=== PATIENT | male | born 1950 | race Caucasian/White ===

== ENCOUNTER 2017-09-29 11:17 | Day surgery (SDC) | payer OTHER ==
[2017-09-24 09:59] VITALS: BMI 33.0
--- NOTE | 2017-09-28 13:41 | HP ---
HISTORY AND PHYSICAL CHIEF COMPLAINT: Right shoulder pain. HISTORY OF PRESENT ILLNESS: The patient is a 67-year-old, right-hand dominant, self-employed male who presents with progressive right shoulder pain for the past 2 years. He notes lateral and anterior pain with overhead activity. He is having significant night symptoms. He has had previous injections with partial temporary relief. PAST MEDICAL HISTORY: Significant for COPD and hypertension. PAST SURGICAL HISTORY: Negative. CURRENT MEDICATIONS: Lisinopril. ALLERGIES: He denies drug allergies. FAMILY HISTORY: Negative. SOCIAL HISTORY: Significant for previous tobacco use in addition to daily alcohol use. REVIEW OF SYSTEMS: Sixteen point review of systems otherwise reviewed and is noncontributory. PHYSICAL EXAMINATION: On examination, the patient is approximately 6 foot 1, 250 pounds, of endomorphic habitus. HEENT exam is nonfocal. Neck is supple. On examination of his right shoulder, he is tender about the anterior subacromial space and the bicipital groove. He has moderate subacromial crepitus. Active range of motion, forward elevation 150 degrees, external rotation with arm at side 60 degrees, internal rotation to T12. Motor strength is 5/5 for abduction, 5/5 for external rotation with arm at side. Impingement test and Speed tests are positive. His distal neurovascular exam otherwise appears intact in the right upper extremity. X-rays to include AP and scapular outlet views of the right shoulder obtained in the office show a type 2 acromion with diminished humeral head to acromial distance. MRI report from 04/22/2017 of the right shoulder shows a high-grade partial-thickness rotator cuff tear. IMPRESSION: 1. Right shoulder impingement with symptomatic rotator cuff tear. 2. Right shoulder bicipital tendinosis. RECOMMENDATIONS: I talked to the patient at length regarding his treatment options. At this point he is quite symptomatic and limited despite adequate conservative measures. After thorough discussion, he opts to proceed with surgery. We will plan to proceed with arthroscopic evaluation with probable subacromial decompression, possible rotator cuff repair, and possible biceps tenotomy. Risks and benefits were discussed at length in layman's terms. MMODL / IJN: [id number] /
[~2017-09-29 11:17] MED LIST: DEXAMETHASONE SOD PHOSPHATE 10 MG/ML 1 ML VIAL IV ONE; HYDROmorphone 0.5 MG/0.5 ML SYRINGE IVP PRN; LACTATED RINGERS 1,000 ML IV SCH; MIDAZOLAM 2 MG/2 ML VIAL IV PRN; ONDANSETRON 4 MG/2 ML VIAL IVP ONE; ceFAZolin IN SWFI 2 GM/20 ML SYRINGE IVP ONE
[2017-09-29 11:45] VITALS: RESP 16
[2017-09-29] MEDS ORDERED: LIDOCAINE 1% 20 ML VIAL (10MG/ML) FOR IV START INTRADERMA ONE (11:51)
[2017-09-29] MEDS ORDERED: PROPOFOL 10 MG/ML 20 ML VIAL IV ONE (12:59)
[2017-09-29] MEDS ORDERED: LIDOCAINE 1% INJ 10MG/ML (20 ML MDV) ONE (12:59)
[2017-09-29] MEDS ORDERED: fentaNYL (PF) 50 MCG/ML 2 ML AMP ONE (12:59)
[2017-09-29] MEDS ORDERED: PHENYLEPHRINE-0.9% NACL SYG 1 MG/10 ML SYRINGE ONE (12:59)
[2017-09-29] MEDS ORDERED: ROPIVACAINE 5 MG/ML 30 ML VIAL ONE (12:59)
[2017-09-29] MEDS ORDERED: ePHEDrine SULFATE/0.9% NACL/PF 50 MG/5 ML SYRINGE IV ONE (12:59)
[2017-09-29] MEDS ORDERED: LIDOCAINE 2%-EPI 1:100,000 20 ML VIAL ONE (12:59)
[2017-09-29] MEDS ORDERED: SUCCINYLCHOLINE CHLORIDE 100 MG/5 ML SYR IV ONE (12:59)
[2017-09-29] MEDS ORDERED: MIDAZOLAM 2 MG/2 ML VIAL ONE (12:59)
[2017-09-29] MEDS ORDERED: EPINEPHrine (PF) 1 ML in SODIUM CHLORIDE 0.9% IRRIGATIO 3,000 ML IRRIGATION ONE ×8 (13:00)
[2017-09-29] MEDS ORDERED: DEXTROSE 50%-WATER 50 ML SYRINGE IVP ONE (13:02)
--- NOTE | 2017-09-29 13:51 | P.ONQ ---
Anesthesiology Proc Note - PNB - Peripheral Nerve Block Performed Right Interscalene Single Time Out Performed: Yes Procedure Start Time: 12:11 Procedure Stop Time: 12:18 Indication: Acute Post-Operative Pain, Requested by physician Sedation Type: Sedate with meaningful contact maintained Preparation: Sterile Prep Position: Supine Needle Gauge: 21 Technique: Ultrasound Injectate: 0.5% Ropivacaine (see comment for volume) (ropi .5% 30cc) Blood Aspirated: No Pain Paresthesia on Injection Noted: No Resistance on Injection: Normal Events: Uneventful and Well Tolerated
--- NOTE | 2017-09-29 14:50 | P.OP ---
Date of Procedure: 09/29/17 Preoperative Diagnosis: Right shoulder symptomatic rotator cuff tear Postoperative Diagnosis: Right 3 cm rotator cuff tear/high-grade partial-thickness tear long head of biceps/anterior labral tear/impingement Procedure(s) Performed: Right shoulder arthroscopic subacromial decompression/biceps tenotomy/rotator cuff repair/anterior labral debridement Implants: 4.75 mm swivel lock anchor 2, 5.5 mm swivel lock anchor 2 Anesthesia: CLOTILDE, regional Surgeon: Eric Telles [place] Winder #1: Pepe Chen Estimated Blood Loss (ml): 10 Pathology: none sent Condition: stable Disposition: PACU Indications for Procedure: The patient is a 67-year-old male who presents with progressive right shoulder pain despite conservative measures. After thorough discussions options to include continued conservative measures versus operative intervention he opted to proceed with surgery. Operative risks to include infection, neurovascular injury, development of blood clots, possible tendon rerupture, possible postoperative stiffness, and possible need for subsequent procedures was discussed. Informed consent was obtained. Operative Findings: As below Description of Procedure: The patient was brought to the operating room, and after induction of general anesthesia was placed in a beachchair position. Bony prominences were appropriately padded. The right upper extremity was prepped and draped in normal fashion. I did examined the right shoulder. There was no gross block to passive motion. There was no gross glenohumeral instability. The bony outlines the acromion, distal clavicle, and coracoid process were outlined with a skin marker. The glenohumeral joint was inflated 50 mL of saline utilizing a spinal needle from posterior approach. A posterior portal was made through a 5 mm skin incision 1 cm medial and inferior to the posterior lateral border of the acromion. A blunt trocar was used to easily into the joint. Diagnostic arthroscopy was performed. An anterior portals made entering the joint above the scapularis just lateral to the coracoid process through a 5 mm skin incision. The subscapularis appeared to be intact. There is tear the anterior labrum that was impinging and was debrided back to stable base with a motorized shaver. A portion inferior labrum was also debrided. On inspection the biceps , high-grade partial-thickness tear of the intrathecal portion the biceps was noted. It was elected to proceed with tenotomy at this point. This was released from the superior labrum with electrocautery and allowed to retract to the bicipital groove. On inspection the rotator cuff, a full-thickness tear involving the supraspinatus and a portion the infraspinatus was noted. This measured approximately 3 cm. There is mild retraction. The posterior portion the cuff appeared to be intact. The arthroscope was then placed into the subacromial space. A lateral portal was made through a 5 mm skin incision 2 cm' s inferior to the anterolateral border of the acromion. The soft tissue on the undersurface the acromion was debrided with a motorized shaver and with electrocautery clearly defining the anterior medial and lateral borders. An anterior inferior acromial physis performed with a motorized mihaela starting anterolateral, then extending this posteriorly, then extending this medially. I was able to convert to a flat acromion. This was verified from the posterior and lateral viewing portals. On inspection rotator cuff this was easily mobilized back to the greater tuberosity. An accessory superior lateral portals made through a 4 mm skin incision just off the lateral edge of the acromion. The greater tuberosity was lightly decorticated with a shaver down to bleeding bony surface. 2 anchors were then placed just off the articular surface with the appropriate starting awl. 4.75 mm anchors were placed with good purchase. #2 fiber tape was preloaded and then passed through the rotator cuff with a scorpion suture passer. These were then crisscrossed and a lateral row was created utilizing 5.5 mm swivel lock anchors. The cuff was appropriately tensioned. Good purchase was obtained. Final arthroscopic view showed adequate compression at the [place] footprint. The portals were closed with simple 3-0 nylon suture. A sterile dressing was applied in addition to a brace. The patient was then awoken from general anesthesia and transferred to recovery room in good condition. Blood loss was estimated at 10 mL. No complications were incurred. Sponge and needle counts were correct at the end of the case.
[2017-09-29 14:54] VITALS: TEMP 97.8
[2017-09-29 16:01] VITALS: BP 164/72; PULSE 88
== END 2017-09-29 17:00 | disposition home or self-care (01) ==
LOC: OR 11:17
PROVIDERS: ATTEND Orthopaedic Surgery
DX: M75.101 Unspecified rotator cuff tear or rupture of right shoulder, not specified as traumatic (principal); S46.111A Strain of muscle, fascia and tendon of long head of biceps, right arm, initial encounter; S43.401A Unspecified sprain of right shoulder joint, initial encounter; X58.XXXA Exposure to other specified factors, initial encounter; M75.41 Impingement syndrome of right shoulder; I10 Essential (primary) hypertension; E78.5 Hyperlipidemia, unspecified; J44.9 Chronic obstructive pulmonary disease, unspecified; I25.10 Atherosclerotic heart disease of native coronary artery without angina pectoris; G47.33 Obstructive sleep apnea (adult) (pediatric); Z99.89 Dependence on other enabling machines and devices; Z79.899 Other long term (current) drug therapy; Z88.8 Allergy status to other drugs, medicaments and biological substances; Z87.891 Personal history of nicotine dependence
CPT/HCPCS: 64415; 29826; 29827; C1713 ×4; J2250; J1100; J2405; J0171; J2001; J3010; J2795; J2370; J0330; J2704; J0690

== ENCOUNTER 2019-09-22 21:25 | Emergency (ER) | payer OTHER ==
[2019-09-22 21:35] VITALS: TEMP 97.8
--- NOTE | 2019-09-22 22:24 | ED ---
Recheck HPI - General Chief Complaint: Recheck/Abnormal Lab/Rx Stated Complaint: High BP Time Seen by Provider: 09/22/19 22:19 Source: patient Mode of arrival: ambulatory Limitations: no limitations - History of Present Illness Initial Comments: Paxton is a 69-year-old male who presents the emergency department today for evaluation of hypertension. 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 Patient states that the pain persisted throughout the day, he did see a chiropractor with no improvement in the discomfort. Patient states that this evening he continued to feel uncomfortable just didn't feel right he checked his blood pressure noted that it was elevated at greater than 200 systolic at which time he took a repeat dose of his lisinopril. Patient reports he checked his blood pressure 2 hours later and reported that it was over 190 systolic at which time he decided to come the ER for evaluation. Patient denies any headache, vision changes, chest pain, palpitations, shortness of breath. He reports other than feeling tightness in his upper back and shoulders he feels well. He currently follows with the [place] [facility] as well as Dr. Morse for cardiology. He is scheduled to see cardiology on of next week. - Related Data Home Medications Medication Instructions Recorded Confirmed Lisinopril [Zestril] 20 mg PO QAM 09/24/17 09/24/17 Previous Rx's Medication Instructions Recorded HYDROcodone/APAP 7.5-325MG [[facility] 1 each PO Q6HR PRN #30 tab 09/29/17 7.5] Allergies Allergy/AdvReac Type Severity Reaction Status Date / Time atenolol AdvReac fatigue Verified 09/22/19 21:32 Review of Systems ROS Statement: Those systems with pertinent positive or pertinent negative responses have been documented in the HPI. ROS Other: All systems not noted in ROS Statement are negative. Past Medical History Past Medical History: Hyperlipidemia, Hypertension, Sleep Apnea/CPAP/BIPAP History of Any Multi-Drug Resistant Organisms: None Reported Past Surgical History: Hernia Repair, Orthopedic Surgery, Tonsillectomy Additional Past Surgical History / Comment(s): umb. and ingiunal hernia, rt cataract, knee arthroscopy Past Anesthesia/Blood Transfusion Reactions: No Reported Reaction Past Psychological History: No Psychological Hx Reported Smoking Status: Former smoker Past Alcohol Use History: Daily, Heavy Past Drug Use History: None Reported - Past Family History Father Family Medical History: Cancer Sister(s) Family Medical History: Cancer General Exam - General Exam Comments Initial Comments: Physical Exam GENERAL: Patient is well-developed and well-nourished. Patient is nontoxic and well- hydrated and is in no distress. HENT: Normocephalic, Atraumatic. EYES: PERRL, EOMI PULMONARY: Unlabored respirations. No audible rales rhonchi or wheezing was noted. CARDIOVASCULAR: There is a regular rate and rhythm without any murmurs gallops or rubs. ABDOMEN: Soft and nontender with normal bowel sounds. SKIN: Skin is clear with no lesions or rashes and otherwise unremarkable. : Deferred NEUROLOGIC: Patient is alert and oriented x3. Moving all extremities spontaneously MUSCULOSKELETAL: Normal extremities with adequate strength and full range of motion. No lower extremity swelling or edema. No calf tenderness. PSYCHIATRIC: Normal psychiatric evaluation. Limitations: no limitations Course Vital Signs 09/22/19 09/22/19 09/22/19 21:31 22:23 23:54 Temperature 97.8 F Pulse Rate 77 73 73 Respiratory 16 18 16 Rate Blood Pressure 194/96 156/84 145/78 O2 Sat by Pulse 99 96 97 Oximetry Medical Decision Making - Medical Decision Making The patient was seen and evaluated, history is obtained from the patient Physical exam is relatively unremarkable excellent patient is noted to be hypertensive on arrival however blood pressures improving systolic is in the 150s at this time and no additional medications are indicated, labs were obtained and results with no significant acute abnormalities, patient continued to rest comfortably and is comfortable plan for discharge home and outpatient follow-up with cardiology as scheduled. 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 - Lab Data Result diagrams: 09/22/19 22:53 09/22/19 22:53 Lab Results 09/22/19 09/22/19 09/22/19 Range/Units 22:53 22:53 22:53 WBC 7.6 (3.8-10.6) k/uL RBC 4.94 (4.30-5.90) m/uL Hgb 16.0 (13.0-17.5) gm/dL Hct 48.4 (39.0-53.0) % MCV 97.9 (80.0-100.0) fL MCH 32.4 (25.0-35.0) pg MCHC 33.1 (31.0-37.0) g/dL RDW 12.4 (11.5-15.5) % Plt Count 184 (150-450) k/uL Neutrophils % 65 % Lymphocytes % 19 % Monocytes % 7 % Eosinophils % 4 % Basophils % 3 % Neutrophils # 5.0 (1.3-7.7) k/uL Lymphocytes # 1.4 (1.0-4.8) k/uL Monocytes # 0.5 (0-1.0) k/uL Eosinophils # 0.3 (0-0.7) k/uL Basophils # 0.3 H (0-0.2) k/uL Sodium 138 (137-145) mmol/L Potassium 5.1 (3.5-5.1) mmol/L Chloride 104 (98-107) mmol/L Carbon Dioxide 23 (22-30) mmol/L Anion Gap 11 mmol/L BUN 25 H (9-20) mg/dL Creatinine 0.76 (0.66-1.25) mg/dL Est GFR (CKD-EPI)AfAm >90 (>60 ml/min/1.73 sqM) Est GFR (CKD-EPI)NonAf >90 (>60 ml/min/1.73 sqM) Glucose 99 (74-99) mg/dL Calcium 9.1 (8.4-10.2) mg/dL Total Bilirubin 1.1 (0.2-1.3) mg/dL AST 42 (17-59) U/L ALT 27 (4-49) U/L Alkaline Phosphatase 35 L (38-126) U/L Troponin I <0.012 (0.000-0.034) ng/mL Total Protein 7.9 (6.3-8.2) g/dL Albumin 4.7 (3.5-5.0) g/dL Disposition Clinical Impression: Hypertension Disposition: HOME SELF-CARE Condition: Stable Instructions (If sedation given, give patient instructions): Chronic Hypertension (DC) Is patient prescribed a controlled substance at d/c from ED?: No Referrals: [facility],Clinic [Primary Care Provider] - 1-2 days
[2019-09-22 22:25] VITALS: PULSE 73
[2019-09-22 23:03] LABS: Basophils # (A) 0.3 k/uL (0-0.2); Basophils % (A) 3 %; Eosinophils # (A) 0.3 k/uL (0-0.7); Eosinophils % (A) 4 %; HCT 48.4 % (39.0-53.0); Lymphocytes # (A) 1.4 k/uL (1.0-4.8); Lymphocytes % (A) 19 %; MCH 32.4 pg (25.0-35.0); MCHC 33.1 g/dL (31.0-37.0); MCV 97.9 fL (80.0-100.0); Mean Platelet Volume 7.9; Monocytes # (A) 0.5 k/uL (0-1.0); Monocytes % (A) 7 %; Neutrophils % (A) 65 %; Platelet Count 184 k/uL (150-450); RBC 4.94 m/uL (4.30-5.90); RDW 12.4 % (11.5-15.5); WBC 7.6 k/uL (3.8-10.6)
--- NOTE | 2019-09-22 23:11 | XR ---
EXAMINATION TYPE: XR chest 2V DATE OF EXAM: 09/22/2019 COMPARISON: NONE HISTORY: Hypertension TECHNIQUE: 2 views FINDINGS: Heart and mediastinum are normal. Lungs are clear. Diaphragm is normal. Bony thorax is inta ct. IMPRESSION: Normal chest.
[2019-09-22 23:23] LABS: African American GFR (CKD) >90 (>60 ml/min/1.73 sqM); Albumin 4.7 g/dL (3.5-5.0); Anion Gap 11 mmol/L; Calcium 9.1 mg/dL (8.4-10.2); Carbon Dioxide 23 mmol/L (22-30); Chloride 104 mmol/L (98-107); Glucose 99 mg/dL (74-99); Non-African American GFR(CKD) >90 (>60 ml/min/1.73 sqM); Sodium 138 mmol/L (137-145); Total Bilirubin 1.1 mg/dL (0.2-1.3); Total Protein 7.9 g/dL (6.3-8.2)
[2019-09-22 23:24] LABS: ALT 27 U/L (4-49); AST 42 U/L (17-59); Alkaline Phosphatase 35 U/L (38-126); Blood Urea Nitrogen 25 mg/dL (9-20); Potassium 5.1 mmol/L (3.5-5.1)
[2019-09-22 23:55] VITALS: BP 145/78; RESP 16
== END 2019-09-23 00:22 | disposition home or self-care (01) ==
LOC: EC 21:25
DX: I10 Essential (primary) hypertension (principal); G47.30 Sleep apnea, unspecified; Z99.89 Dependence on other enabling machines and devices; Z88.8 Allergy status to other drugs, medicaments and biological substances; Z87.891 Personal history of nicotine dependence
CPT/HCPCS: 36415; 71046; 80053; 84484; 85025; 99283

== ENCOUNTER 2020-02-16 18:57 | Inpatient (IN) | payer OTHER, MEDICARE ==
[2020-02-16] MEDS ORDERED: HYDROcodone/APAP 7.5-325MG 1 EACH TAB PO ONE (19:25)
--- NOTE | 2020-02-16 19:25 | ED ---
Fall HPI - General Chief Complaint: Fall Stated Complaint: Fall, SOB Time Seen by Provider: 02/16/20 19:15 Source: patient Mode of arrival: ambulatory - History of Present Illness Initial Comments: This is a 69-year-old male who states he tripped over a piece of wood landed on his chest on concrete. He complains some left-sided chest pain difficulty breathing with pain when he tries to take a deep breath. He also did scuff his left knee and left elbow up he states. He does have a history of a bad need at some point we'll need replacing as well as a left shoulder that he states will have surgery on it in the future. He denies any other injuries such as head neck or back pain no other modifying factors MD Complaint: fall - Related Data Home Medications Medication Instructions Recorded Confirmed Lisinopril [Zestril] 20 mg PO DAILY 09/24/17 02/16/20 Atorvastatin Calcium [Lipitor] 20 mg PO HS 02/16/20 02/16/20 Triamterene-Hctz 37.5-25Mg 1 cap PO DAILY 02/16/20 02/16/20 [Dyazide 37.5-25 Capsule] Vitamin For Swelling Otc(Unknown) 1 tab PO DAILY 02/16/20 02/16/20 Allergies Allergy/AdvReac Type Severity Reaction Status Date / Time atenolol AdvReac fatigue Verified 02/16/20 20:40 Review of Systems ROS Statement: Those systems with pertinent positive or pertinent negative responses have been documented in the HPI. ROS Other: All systems not noted in ROS Statement are negative. Past Medical History Past Medical History: Hyperlipidemia, Hypertension, Sleep Apnea/CPAP/BIPAP History of Any Multi-Drug Resistant Organisms: None Reported Past Surgical History: Hernia Repair, Orthopedic Surgery, Tonsillectomy Additional Past Surgical History / Comment(s): umb. and ingiunal hernia, rt cataract, knee arthroscopy Past Anesthesia/Blood Transfusion Reactions: No Reported Reaction Past Psychological History: No Psychological Hx Reported Smoking Status: Former smoker Past Alcohol Use History: Daily, Heavy Past Drug Use History: None Reported - Past Family History Father Family Medical History: Cancer Sister(s) Family Medical History: Cancer General Exam - General Exam Comments Initial Comments: This is a well-developed well-nourished awake alert oriented times female with a Luis A Coma Scale of 15 Limitations: no limitations General appearance: alert, anxious Head exam: Present: atraumatic, normocephalic, normal inspection Eye exam: Present: normal appearance, PERRL, EOMI. Absent: scleral icterus, conjunctival injection, periorbital swelling ENT exam: Present: normal exam, mucous membranes moist Neck exam: Present: normal inspection. Absent: tenderness, meningismus, lymphadenopathy Respiratory exam: Present: chest wall tenderness, decreased breath sounds, other (Decreased breath sounds with tenderness palpation of left anterior lateral chest wall no step-off or crepitation no bruising seen.). Absent: respiratory distress, wheezes, rales, rhonchi, stridor Cardiovascular Exam: Present: regular rate, normal rhythm, normal heart sounds. Absent: systolic murmur, diastolic murmur, rubs, gallop, clicks GI/Abdominal exam: Present: soft, normal bowel sounds. Absent: distended, tenderness, guarding, rebound, rigid, bruit, pulsatile mass Extremities exam: Present: full ROM, normal capillary refill, other (Abrasion seen to the left elbow and forearm no clavicular tenderness on the left. Also abrasion seen over the anterior left knee). Absent: tenderness, pedal edema, joint swelling, calf tenderness Back exam: Present: normal inspection Neurological exam: Present: alert, oriented X3, CN II-XII intact Psychiatric exam: Present: normal affect, normal mood Skin exam: Present: warm, dry, normal color. Absent: intact, rash Course Vital Signs 02/16/20 18:59 Temperature 98.6 F Pulse Rate 93 Respiratory 20 Rate Blood Pressure 130/73 O2 Sat by Pulse 99 Oximetry Procedures - Chest Tube Insertion Consent Obtained: emergent situation Side of Procedure: left Indication: Pneumothorax Placed on monitor/pulse oximetry: Yes Site Prep: Chloroprep Local Anesthesia: Lidocaine 1% Amount (mLs): 7 Insertion Site: Other Tube Size (Japanese): Other Returns: Air Sutured in Place: No (Adhesive) Attached to Suction: No (Not indicated) Repeat X-ray Results: Lung Inflated Patient Tolerated Procedure: well (I did place a door event the second intercostal space midclavicular line on the left. The area was prepped and draped sterilely 1% Xylocaine plain used for anesthetic a #11 blade was used to neck the scan and the device was placed in the usual fashion. The patient did tolerate this well.) Medical Decision Making - Medical Decision Making I did discuss the findings with the patient's . Patient will be admitted to Dr. Perez with consultation to Dr. Mcgarry - Lab Data Result diagrams: 02/16/20 20:24 02/16/20 20:24 Lab Results 02/16/20 02/16/20 02/16/20 Range/Units 20:24 20:24 20:24 WBC 13.4 H (3.8-10.6) k/uL RBC 3.96 L (4.30-5.90) m/uL Hgb 11.8 L (13.0-17.5) gm/dL Hct 37.0 L (39.0-53.0) % MCV 93.4 (80.0-100.0) fL MCH 29.9 (25.0-35.0) pg MCHC 32.0 (31.0-37.0) g/dL RDW 14.3 (11.5-15.5) % Plt Count 411 (150-450) k/uL Neutrophils % 83 % Lymphocytes % 9 % Monocytes % 5 % Eosinophils % 2 % Basophils % 0 % Neutrophils # 11.2 H (1.3-7.7) k/uL Lymphocytes # 1.2 (1.0-4.8) k/uL Monocytes # 0.6 (0-1.0) k/uL Eosinophils # 0.3 (0-0.7) k/uL Basophils # 0.1 (0-0.2) k/uL PT 10.5 (9.0-12.0) sec INR 1.0 (<1.2) APTT 21.0 L (22.0-30.0) sec Sodium 135 L (137-145) mmol/L Potassium 4.0 (3.5-5.1) mmol/L Chloride 101 (98-107) mmol/L Carbon Dioxide 22 (22-30) mmol/L Anion Gap 12 mmol/L BUN 35 H (9-20) mg/dL Creatinine 1.17 (0.66-1.25) mg/dL Est GFR (CKD-EPI)AfAm 74 (>60 ml/min/1.73 sqM) Est GFR (CKD-EPI)NonAf 64 (>60 ml/min/1.73 sqM) Glucose 117 H (74-99) mg/dL Calcium 9.3 (8.4-10.2) mg/dL Total Bilirubin 0.3 (0.2-1.3) mg/dL AST 17 (17-59) U/L ALT 14 (4-49) U/L Alkaline Phosphatase 58 (38-126) U/L Creatine Kinase 39 L (55-170) U/L Total Protein 6.6 (6.3-8.2) g/dL Albumin 3.7 (3.5-5.0) g/dL - Radiology Data Radiology results: report reviewed (I did review the imaging and report and did discuss the case with the radiologist. Patient does have an approximate 25% pneumothorax on the left with evidence of a sixth rib fracture.), image reviewed Disposition Clinical Impression: Fall, Pneumothorax, left, Fracture of six ribs of left side Disposition: ADMITTED IP TO THIS [facility] Condition: Fair Referrals: [facility],Clinic [Primary Care Provider] - 1-2 days
--- NOTE | 2020-02-16 19:45 | XR ---
EXAMINATION TYPE: XR ribs LT w pa chest xray DATE OF EXAM: 02/16/2020 CLINICAL HISTORY: Chest and left-sided rib pain after fall injury. TECHNIQUE: Single frontal view of the chest is obtained. Frontal and oblique images of the left-sided ribs. COMPARISON: Chest x-ray September 22, 2019. FINDINGS: Slightly elevated left hemidiaphragm on current study. There is new fairly moderate-sized left pneumothorax estimated 25%. New basilar atelectatic change. Right lung is clear. The cardiac silhouette size is stable and upper limits of normal. The osseous structures are intact. Dedicated images the left-sided ribs shows probable acute minimally displaced fracture anterolateral left sixth rib. No definitive additional acute displaced rib fractures. IMPRESSION: 1. New fairly moderate sized left pneumothorax estimated 25%. 2. Suspect acute minimally displaced fracture anterolateral left sixth rib. Critical results communicated to ordering ER physician via telephone at time of dictation.
[2020-02-16] MEDS ORDERED: LIDOCAINE 1% INJ 10MG/ML (20 ML MDV) SQ ONE (20:00)
[2020-02-16 20:35] LABS: Basophils # (A) 0.1 k/uL (0-0.2); Basophils % (A) 0 %; Eosinophils # (A) 0.3 k/uL (0-0.7); Eosinophils % (A) 2 %; HGB 11.8 gm/dL (13.0-17.5); Lymphocytes # (A) 1.2 k/uL (1.0-4.8); Lymphocytes % (A) 9 %; MCH 29.9 pg (25.0-35.0); MCV 93.4 fL (80.0-100.0); Mean Platelet Volume 6.4; Monocytes # (A) 0.6 k/uL (0-1.0); Monocytes % (A) 5 %; Neutrophils # (A) 11.2 k/uL (1.3-7.7); Neutrophils % (A) 83 %; Platelet Count 411 k/uL (150-450); RBC 3.96 m/uL (4.30-5.90); RDW 14.3 % (11.5-15.5); WBC 13.4 k/uL (3.8-10.6)
[2020-02-16 20:47] LABS: Albumin 3.7 g/dL (3.5-5.0); Calcium 9.3 mg/dL (8.4-10.2); Total Bilirubin 0.3 mg/dL (0.2-1.3); Total Protein 6.6 g/dL (6.3-8.2)
[2020-02-16 20:59] LABS: Prothrombin Time 10.5 sec (9.0-12.0)
--- NOTE | 2020-02-16 21:25 | XR ---
EXAMINATION TYPE: XR chest 1V confirm line [facility] DATE OF EXAM: 02/16/2020 COMPARISON: Chest x-ray earlier today. HISTORY: Pneumothorax status post chest tube placement. TECHNIQUE: Single AP portable frontal upright view of the chest is obtained. FINDINGS: There is marked improvement in left-sided pneumothorax after chest tube placement. Persis tent elevated left hemidiaphragm. Some chronic foraminal change without suspicious focal airspace [place] or pleural effusion bilaterally. The cardiac silhouette size is stable and upper limits of henna l. The osseous structures are intact. IMPRESSION: No residual pneumothorax after left-sided chest tube placement.
[2020-02-16] MEDS ORDERED: ONDANSETRON 4 MG/2 ML VIAL IVP PRN (21:32)
[2020-02-16] MEDS ORDERED: NALOXONE 0.4 MG/ML 1 ML VIAL IV PRN (21:32)
[2020-02-16] MEDS: SODIUM CHLORIDE 0.9% 1,000 ML IV SCH (22:43)
[2020-02-16] MEDS: HYDROmorphone 0.5 MG/0.5 ML SYRINGE IVP PRN (22:44)
[2020-02-17] MEDS: HYDROmorphone 0.5 MG/0.5 ML SYRINGE IVP PRN ×2 (01:50→07:29)
[2020-02-17 08:00] LABS: Basophils % (A) 1 %; Eosinophils # (A) 0.3 k/uL (0-0.7); Eosinophils % (A) 4 %; HCT 32.5 % (39.0-53.0); HGB 10.2 gm/dL (13.0-17.5); Lymphocytes # (A) 1.7 k/uL (1.0-4.8); Lymphocytes % (A) 23 %; MCHC 31.4 g/dL (31.0-37.0); MCV 92.4 fL (80.0-100.0); Mean Platelet Volume 6.6; Monocytes # (A) 0.6 k/uL (0-1.0); Monocytes % (A) 8 %; Neutrophils # (A) 4.5 k/uL (1.3-7.7); Neutrophils % (A) 61 %; Platelet Count 379 k/uL (150-450); RBC 3.52 m/uL (4.30-5.90); RDW 14.6 % (11.5-15.5); WBC 7.4 k/uL (3.8-10.6)
[2020-02-17 08:17] LABS: ALT 12 U/L (4-49); AST 15 U/L (17-59); African American GFR (CKD) >90 (>60 ml/min/1.73 sqM); Albumin 3.4 g/dL (3.5-5.0); Alkaline Phosphatase 51 U/L (38-126); Anion Gap 7 mmol/L; Blood Urea Nitrogen 34 mg/dL (9-20); Calcium 8.8 mg/dL (8.4-10.2); Carbon Dioxide 27 mmol/L (22-30); Chloride 103 mmol/L (98-107); Glucose 89 mg/dL (74-99); Non-African American GFR(CKD) 84 (>60 ml/min/1.73 sqM); Potassium 4.3 mmol/L (3.5-5.1); Sodium 137 mmol/L (137-145); Total Bilirubin 0.4 mg/dL (0.2-1.3); Total Protein 6.1 g/dL (6.3-8.2)
[2020-02-17] MEDS: lisinopriL 20 MG TAB PO SCH (10:44)
[2020-02-17] MEDS: TRIAMTERENE-HCTZ 37.5-25MG 1 EACH CAP PO SCH (10:44)
--- NOTE | 2020-02-17 10:45 | XR ---
EXAMINATION TYPE: XR chest 1V portable DATE OF EXAM: 02/17/2020 COMPARISON: 02/16/2020 HISTORY: Left pneumothorax TECHNIQUE: Single frontal view of the chest is obtained. FINDINGS: There is no focal air space opacity, pleural effusion, or pneumothorax seen. The cardiac silhouette size is within normal limits. The osseous structures are intact. Small amount of subcuta neous emphysema noted. Heart size stable. IMPRESSION: 1. No sizable pneumothorax post chest tube placement.
--- NOTE | 2020-02-17 11:53 | P.GSCN ---
History of Present Illness Consult date: 02/17/20 Reason for Consult: Left pneumothorax status post thoravent placement from the emergency room physicians Requesting physician: Justin Mcgarry History of present illness: This is a 69-year-old gentleman who follows him on an outpatient basis at the [facility]. He has a previous medical history of hypertension, hyp erlipidemia, obstructive sleep apnea, osteoarthritis, previous tobacco dependence, daily EtOH use, and family history of heart disease and cancer. Apparently yesterday he was carrying a saw, he caught his foot is trying to step over wall, he tripped and fell without hitting his head and with no loss of consciousness. He developed shortness of breath and presented to [facility] emergency room for evaluation and treatment. He denied any other aggravating or alleviating symptoms. Chest x-ray demonstrated minimally displaced sixth rib fracture on the left as well as 25% left-sided pneumothorax. A thoravent was placed by the emergency room physicians with excellent reexpansion of the lung. The patient was admitted with consultation placed to pulmonology. Repeat chest x-ray this morning again demonstrates complete reexpansion of the lung. Consultation was placed by Dr. Mcgarry to Dr. Abbott from cardiothoracic surgery for thoravent management. Review of Systems Review of systems was completed and was negative except as noted. - Respiratory Reports dyspnea - Musculoskeletal Musculoskeleta Comment(s): Recent fall from standing with no loss of consciousness Past Medical History Past Medical History: Hyperlipidemia, Hypertension, Osteoarthritis (OA), Sleep Apnea/CPAP/BIPAP History of Any Multi-Drug Resistant Organisms: None Reported Past Surgical History: Hernia Repair, Orthopedic Surgery, Tonsillectomy Additional Past Surgical History / Comment(s): umb. and ingiunal hernia, rt cataract, knee arthroscopy Past Anesthesia/Blood Transfusion Reactions: No Reported Reaction Past Psychological History: No Psychological Hx Reported Smoking Status: Former smoker Past Alcohol Use History: Daily, Heavy Additional Past Alcohol Use History / Comment(s): quit smoking 2007, smoked 3ppd from age 15. states 4-5 drinks daily Past Drug Use History: None Reported - Past Family History Father Family Medical History: Cancer Sister(s) Family Medical History: Cancer Mother Family Medical History: Coronary Artery Disease (CAD) Medications and Allergies Home Medications Medication Instructions Recorded Confirmed Type Lisinopril [Zestril] 20 mg PO DAILY 09/24/17 02/16/20 History Atorvastatin Calcium [Lipitor] 20 mg PO HS 02/16/20 02/16/20 History Triamterene-Hctz 37.5-25Mg 1 cap PO DAILY 02/16/20 02/16/20 History [Dyazide 37.5-25 Capsule] Vitamin For Swelling Otc(Unknown) 1 tab PO DAILY 02/16/20 02/16/20 History Allergies Allergy/AdvReac Type Severity Reaction Status Date / Time atenolol AdvReac fatigue Verified 02/16/20 20:40 Surgical - Exam Vital Signs Temp Pulse Resp BP Pulse Ox 98.6 F 93 20 130/73 99 02/16/20 18:59 02/16/20 18:59 02/16/20 18:59 02/16/20 18:59 02/16/20 18:59 - General well developed, well nourished, no distress, no pain - Eyes PERRL, normal ocular movement - ENT no hearing loss - Neck no masses, no bruits, trachea midline - Respiratory Lungs sounds essentially clear bilaterally with diminished breath sounds in the left apex. Respirations even, nonlabored. Currently on 2 L nasal cannula with oxygen saturation 98%. Left-sided thoravent present without suction, positive fluctuation in the red diaphragm with coughing. - Cardiovascular S1, S2 present. Regular rate and rhythm. Palpable peripheral pulses bilaterally. No edema present. No calf pain or tenderness noted. - Abdomen Abdomen: soft, non tender, bowel sounds - Genitourinary Deferred - Rectum Deferred - Integumentary Abrasions noted to left elbow area no rash, no growths - Neurologic normal coordination, normal sensation - Musculoskeletal normal posture - Psychiatric oriented to time, oriented to person, oriented to place, speech is normal, memory intact Results - Labs 02/17/20 07:19 02/17/20 07:19 Abnormal Lab Results - Last 24 Hours (Table) 02/16/20 02/16/20 02/16/20 Range/Units 20:24 20:24 20:24 WBC 13.4 H (3.8-10.6) k/uL RBC 3.96 L (4.30-5.90) m/uL Hgb 11.8 L (13.0-17.5) gm/dL Hct 37.0 L (39.0-53.0) % Neutrophils # 11.2 H (1.3-7.7) k/uL APTT 21.0 L (22.0-30.0) sec Sodium 135 L (137-145) mmol/L BUN 35 H (9-20) mg/dL Glucose 117 H (74-99) mg/dL AST (17-59) U/L Creatine Kinase 39 L (55-170) U/L Total Protein (6.3-8.2) g/dL Albumin (3.5-5.0) g/dL 02/17/20 02/17/20 Range/Units 07:19 07:19 WBC (3.8-10.6) k/uL RBC 3.52 L (4.30-5.90) m/uL Hgb 10.2 L (13.0-17.5) gm/dL Hct 32.5 L (39.0-53.0) % Neutrophils # (1.3-7.7) k/uL APTT (22.0-30.0) sec Sodium (137-145) mmol/L BUN 34 H (9-20) mg/dL Glucose (74-99) mg/dL AST 15 L (17-59) U/L Creatine Kinase (55-170) U/L Total Protein 6.1 L (6.3-8.2) g/dL Albumin 3.4 L (3.5-5.0) g/dL Diabetes panel 02/16/20 02/17/20 Range/Units 20:24 07:19 Sodium 135 L 137 (137-145) mmol/L Potassium 4.0 4.3 (3.5-5.1) mmol/L Chloride 101 103 (98-107) mmol/L Carbon Dioxide 22 27 (22-30) mmol/L BUN 35 H 34 H (9-20) mg/dL Creatinine 1.17 0.93 (0.66-1.25) mg/dL Glucose 117 H 89 (74-99) mg/dL Calcium 9.3 8.8 (8.4-10.2) mg/dL AST 17 15 L (17-59) U/L ALT 14 12 (4-49) U/L Alkaline Phosphatase 58 51 (38-126) U/L Total Protein 6.6 6.1 L (6.3-8.2) g/dL Albumin 3.7 3.4 L (3.5-5.0) g/dL Calcium panel 02/16/20 02/17/20 Range/Units 20:24 07:19 Calcium 9.3 8.8 (8.4-10.2) mg/dL Albumin 3.7 3.4 L (3.5-5.0) g/dL Pituitary panel 02/16/20 02/17/20 Range/Units 20:24 07:19 Sodium 135 L 137 (137-145) mmol/L Potassium 4.0 4.3 (3.5-5.1) mmol/L Chloride 101 103 (98-107) mmol/L Carbon Dioxide 22 27 (22-30) mmol/L BUN 35 H 34 H (9-20) mg/dL Creatinine 1.17 0.93 (0.66-1.25) mg/dL Glucose 117 H 89 (74-99) mg/dL Calcium 9.3 8.8 (8.4-10.2) mg/dL Adrenal panel 02/16/20 02/17/20 Range/Units 20:24 07:19 Sodium 135 L 137 (137-145) mmol/L Potassium 4.0 4.3 (3.5-5.1) mmol/L Chloride 101 103 (98-107) mmol/L Carbon Dioxide 22 27 (22-30) mmol/L BUN 35 H 34 H (9-20) mg/dL Creatinine 1.17 0.93 (0.66-1.25) mg/dL Glucose 117 H 89 (74-99) mg/dL Calcium 9.3 8.8 (8.4-10.2) mg/dL Total Bilirubin 0.3 0.4 (0.2-1.3) mg/dL AST 17 15 L (17-59) U/L ALT 14 12 (4-49) U/L Alkaline Phosphatase 58 51 (38-126) U/L Total Protein 6.6 6.1 L (6.3-8.2) g/dL Albumin 3.7 3.4 L (3.5-5.0) g/dL - Imaging Chest x-ray: report reviewed, image reviewed Assessment and Plan Assessment: 1. Left-sided traumatic pneumothorax, left sixth rib fracture, status post fall from standing, status post left-sided thoravent placement by the emergency room physicians 2. History of hypertension 3. History of hyperlipidemia 4. Previous tobacco dependence 5. Daily EtOH use Plan: The patient was seen and examined at the bedside. Chart/diagnostics were reviewed. The case will be discussed in detail with Dr. Abbott who will see the patient today. Continue thoravent without suction. We will obtain chest x-ray in the morning, if the lung remains reexpanded may place occlusive cap. Incentive spirometry ordered and encouraged. Pain control with current medication regimen, may add Toradol. Patient encouraged to ambulate. Management of other medical comorbidities per primary care service. More recommendations to follow Thank you Dr. Mcgarry for this consult. We look forward to working with you in the care of your patient Time with Patient: Greater than 30
--- NOTE | 2020-02-17 12:55 | P.GSCN ---
History of Present Illness Consult date: 02/17/20 Reason for Consult: Left-sided rib fractures History of present illness: 69-year-old male came to the hospital yesterday after falling at home. This was a ground-level fall where he struck the left side of his chest on the concrete while he was working on a shed. No loss of consciousness. No pain elsewhere. Patient has chronic left shoulder and left knee pain. X-rays in the ER demonstrated a sixth rib fracture on the left as well as a 25% pneumothorax. Thoracic vent was placed. Patient has already been seen by thoracic surgery. W e were asked to evaluate for admission regarding trauma. Denies abdominal pain. Hemoglobin 10.4. Repeat chest x-ray shows good expansion. Thoracic vent is to air seal only. Review of Systems The patient denies any acute changes in vision or hearing, no dysphagia or od ynophagia, no dysuria or hematuria, no headache, no runny nose, no rectal bleeding or melena, no unexplained weight loss Past Medical History Past Medical History: Hyperlipidemia, Hypertension, Osteoarthritis (OA), Sleep Apnea/CPAP/BIPAP History of Any Multi-Drug Resistant Organisms: None Reported Past Surgical History: Hernia Repair, Orthopedic Surgery, Tonsillectomy Additional Past Surgical History / Comment(s): umb. and ingiunal hernia, rt cataract, knee arthroscopy Past Anesthesia/Blood Transfusion Reactions: No Reported Reaction Past Psychological History: No Psychological Hx Reported Smoking Status: Former smoker Past Alcohol Use History: Daily, Heavy Additional Past Alcohol Use History / Comment(s): quit smoking 2007, smoked 3ppd from age 15. states 4-5 drinks daily Past Drug Use History: None Reported - Past Family History Father Family Medical History: Cancer Sister(s) Family Medical History: Cancer Mother Family Medical History: Coronary Artery Disease (CAD) Medications and Allergies Home Medications Medication Instructions Recorded Confirmed Type Lisinopril [Zestril] 20 mg PO DAILY 09/24/17 02/16/20 History Atorvastatin Calcium [Lipitor] 20 mg PO HS 02/16/20 02/16/20 History Triamterene-Hctz 37.5-25Mg 1 cap PO DAILY 02/16/20 02/16/20 History [Dyazide 37.5-25 Capsule] Vitamin For Swelling Otc(Unknown) 1 tab PO DAILY 02/16/20 02/16/20 History Allergies Allergy/AdvReac Type Severity Reaction Status Date / Time atenolol AdvReac fatigue Verified 02/16/20 20:40 Surgical - Exam Vital Signs Temp Pulse Resp BP Pulse Ox 98.6 F 93 20 130/73 99 02/16/20 18:59 02/16/20 18:59 02/16/20 18:59 02/16/20 18:59 02/16/20 18:59 Physical exam: General: Well-developed, well-nourished HEENT: Normocephalic, sclerae nonicteric Abdomen: Nontender, nondistended Chest: Equal breath sounds, left anterior thoracic vent in place, left lateral rib tenderness Extremities: No edema Neuro: Alert and oriented Results - Labs 02/17/20 07:19 02/17/20 07:19 Abnormal Lab Results - Last 24 Hours (Table) 02/16/20 02/16/20 02/16/20 Range/Units 20:24 20:24 20:24 WBC 13.4 H (3.8-10.6) k/uL RBC 3.96 L (4.30-5.90) m/uL Hgb 11.8 L (13.0-17.5) gm/dL Hct 37.0 L (39.0-53.0) % Neutrophils # 11.2 H (1.3-7.7) k/uL APTT 21.0 L (22.0-30.0) sec Sodium 135 L (137-145) mmol/L BUN 35 H (9-20) mg/dL Glucose 117 H (74-99) mg/dL AST (17-59) U/L Creatine Kinase 39 L (55-170) U/L Total Protein (6.3-8.2) g/dL Albumin (3.5-5.0) g/dL 02/17/20 02/17/20 Range/Units 07:19 07:19 WBC (3.8-10.6) k/uL RBC 3.52 L (4.30-5.90) m/uL Hgb 10.2 L (13.0-17.5) gm/dL Hct 32.5 L (39.0-53.0) % Neutrophils # (1.3-7.7) k/uL APTT (22.0-30.0) sec Sodium (137-145) mmol/L BUN 34 H (9-20) mg/dL Glucose (74-99) mg/dL AST 15 L (17-59) U/L Creatine Kinase (55-170) U/L Total Protein 6.1 L (6.3-8.2) g/dL Albumin 3.4 L (3.5-5.0) g/dL Diabetes panel 02/16/20 02/17/20 Range/Units 20:24 07:19 Sodium 135 L 137 (137-145) mmol/L Potassium 4.0 4.3 (3.5-5.1) mmol/L Chloride 101 103 (98-107) mmol/L Carbon Dioxide 22 27 (22-30) mmol/L BUN 35 H 34 H (9-20) mg/dL Creatinine 1.17 0.93 (0.66-1.25) mg/dL Glucose 117 H 89 (74-99) mg/dL Calcium 9.3 8.8 (8.4-10.2) mg/dL AST 17 15 L (17-59) U/L ALT 14 12 (4-49) U/L Alkaline Phosphatase 58 51 (38-126) U/L Total Protein 6.6 6.1 L (6.3-8.2) g/dL Albumin 3.7 3.4 L (3.5-5.0) g/dL Calcium panel 02/16/20 02/17/20 Range/Units 20:24 07:19 Calcium 9.3 8.8 (8.4-10.2) mg/dL Albumin 3.7 3.4 L (3.5-5.0) g/dL Pituitary panel 02/16/20 02/17/20 Range/Units 20:24 07:19 Sodium 135 L 137 (137-145) mmol/L Potassium 4.0 4.3 (3.5-5.1) mmol/L Chloride 101 103 (98-107) mmol/L Carbon Dioxide 22 27 (22-30) mmol/L BUN 35 H 34 H (9-20) mg/dL Creatinine 1.17 0.93 (0.66-1.25) mg/dL Glucose 117 H 89 (74-99) mg/dL Calcium 9.3 8.8 (8.4-10.2) mg/dL Adrenal panel 02/16/20 02/17/20 Range/Units 20:24 07:19 Sodium 135 L 137 (137-145) mmol/L Potassium 4.0 4.3 (3.5-5.1) mmol/L Chloride 101 103 (98-107) mmol/L Carbon Dioxide 22 27 (22-30) mmol/L BUN 35 H 34 H (9-20) mg/dL Creatinine 1.17 0.93 (0.66-1.25) mg/dL Glucose 117 H 89 (74-99) mg/dL Calcium 9.3 8.8 (8.4-10.2) mg/dL Total Bilirubin 0.3 0.4 (0.2-1.3) mg/dL AST 17 15 L (17-59) U/L ALT 14 12 (4-49) U/L Alkaline Phosphatase 58 51 (38-126) U/L Total Protein 6.6 6.1 L (6.3-8.2) g/dL Albumin 3.7 3.4 L (3.5-5.0) g/dL Assessment and Plan (1) Fracture of six ribs of left side Narrative/Plan: Patient doing well after thoracic vent placement. No evidence of traumatic injury elsewhere. Continue management of the patient's pneumothorax per thoracic surgery. No further trauma service evaluation planned. We'll sign off. Call if needed. Current Visit: Yes Status: Acute Code(s): S22.42XA - MULTIPLE FRACTURES OF RIBS, LEFT SIDE, INIT FOR CLOS FX SNOMED Code(s): 70286045
--- NOTE | 2020-02-17 14:35 | P.HPIM ---
History of Present Illness Patient is a pleasant 69-year-old male came in after a mechanical fall and patient had an fractures was complaining of the pain was found to have 20% left- sided pneumothorax patient has a permanent in that area. Patient denied any f ever chills nausea vomiting abdominal pain dysuria. Patient had a syncopal episode. Patient will be monitored overnight here for his pneumothorax and repeat chest x-ray will be obtained tomorrow if that remains stable patient probably will be discharged tomorrow. Patient denied any emphysema smoking history. Patient had a fracture, sixth rib on the left side Review of Systems REVIEW OF SYSTEMS: CONSTITUTIONAL: No fever, no malaise, no fatigue. HEENT: No recent visual problems or hearing problems. Denied any sore throat. CARDIOVASCULAR: No orthopnea, PND, no palpitations, no syncope. PULMONARY: No shortness of breath, no cough, no hemoptysis. GASTROINTESTINAL: No diarrhea, no nausea, no vomiting, no abdominal pain. NEUROLOGICAL: No headaches, no weakness, no numbness. HEMATOLOGICAL: Denies any bleeding or petechiae. GENITOURINARY: Denies any burning micturition, frequency, or urgency. MUSCULOSKELETAL/RHEUMATOLOGICAL: Denies any joint pain, swelling, or any muscle pain. ENDOCRINE: Denies any polyuria or polydipsia. The rest of the 14-point review of systems is negative. Past Medical History Past Medical History: Hyperlipidemia, Hypertension, Osteoarthritis (OA), Sleep Apnea/CPAP/BIPAP History of Any Multi-Drug Resistant Organisms: None Reported Past Surgical History: Hernia Repair, Orthopedic Surgery, Tonsillectomy Additional Past Surgical History / Comment(s): umb. and ingiunal hernia, rt cataract, knee arthroscopy Past Anesthesia/Blood Transfusion Reactions: No Reported Reaction Past Psychological History: No Psychological Hx Reported Smoking Status: Former smoker Past Alcohol Use History: Daily, Heavy Additional Past Alcohol Use History / Comment(s): quit smoking 2007, smoked 3ppd from age 15. states 4-5 drinks daily Past Drug Use History: None Reported - Past Family History Father Family Medical History: Cancer Sister(s) Family Medical History: Cancer Mother Family Medical History: Coronary Artery Disease (CAD) Medications and Allergies Home Medications Medication Instructions Recorded Confirmed Type Lisinopril [Zestril] 20 mg PO DAILY 02/15/18 07/09/20 History Atorvastatin Calcium [Lipitor] 20 mg PO HS 02/16/20 02/16/20 History Triamterene-Hctz 37.5-25Mg 1 cap PO DAILY 02/16/20 02/16/20 History [Dyazide 37.5-25 Capsule] Vitamin For Swelling Otc(Unknown) 1 tab PO DAILY 02/16/20 02/16/20 History Allergies Allergy/AdvReac Type Severity Reaction Status Date / Time atenolol AdvReac fatigue Verified 02/16/20 20:40 Physical Exam Vitals: Vital Signs Temp Pulse Pulse Resp BP BP Pulse Ox 02/17/20 08:00 73 18 02/17/20 07:00 98.0 F 73 18 117/76 98 02/17/20 01:04 97.6 F 79 18 127/73 98 02/16/20 22:58 98.5 F 79 16 156/79 98 02/16/20 22:55 98 F 86 18 113/73 98 02/16/20 18:59 98.6 F 93 20 130/73 99 Intake and Output 02/16/20 02/17/20 02/17/20 22:59 06:59 14:59 Other: Weight 104.326 kg 104.326 kg PHYSICAL EXAMINATION: GENERAL: The patient is alert and oriented x3, not in any acute distress. Well developed, well nourished. HEENT: Pupils are round and equally reacting to light. EOMI. No scleral icterus. No conjunctival pallor. Normocephalic, atraumatic. No pharyngeal erythema. No thyromegaly. CARDIOVASCULAR: S1 and S2 present. No murmurs, rubs, or gallops. PULMONARY: Chest is clear to auscultation, no wheezing or crackles. ABDOMEN: Soft, nontender, nondistended, normoactive bowel sounds. No palpable organomegaly. MUSCULOSKELETAL: No joint swelling or deformity. EXTREMITIES: No cyanosis, clubbing, or pedal edema. NEUROLOGICAL: Gross neurological examination did not reveal any focal deficits. SKIN: No rashes. Results CBC & Chem 7: 02/17/20 07:19 02/17/20 07:19 Labs: Abnormal Lab Results - Last 24 Hours (Table) 02/16/20 02/16/20 02/16/20 Range/Units 20:24 20:24 20:24 WBC 13.4 H (3.8-10.6) k/uL RBC 3.96 L (4.30-5.90) m/uL Hgb 11.8 L (13.0-17.5) gm/dL Hct 37.0 L (39.0-53.0) % Neutrophils # 11.2 H (1.3-7.7) k/uL APTT 21.0 L (22.0-30.0) sec Sodium 135 L (137-145) mmol/L BUN 35 H (9-20) mg/dL Glucose 117 H (74-99) mg/dL AST (17-59) U/L Creatine Kinase 39 L (55-170) U/L Total Protein (6.3-8.2) g/dL Albumin (3.5-5.0) g/dL 02/17/20 02/17/20 Range/Units 07:19 07:19 WBC (3.8-10.6) k/uL RBC 3.52 L (4.30-5.90) m/uL Hgb 10.2 L (13.0-17.5) gm/dL Hct 32.5 L (39.0-53.0) % Neutrophils # (1.3-7.7) k/uL APTT (22.0-30.0) sec Sodium (137-145) mmol/L BUN 34 H (9-20) mg/dL Glucose (74-99) mg/dL AST 15 L (17-59) U/L Creatine Kinase (55-170) U/L Total Protein 6.1 L (6.3-8.2) g/dL Albumin 3.4 L (3.5-5.0) g/dL Thrombosis Risk Factor Assmnt - Choose All That Apply Any of the Below Risk Factors Present?: No Assessment and Plan Plan: -Mechanical fall, rib fracture on the left side is followed by pneumothorax: Continue with the current continue to monitor overnight and repeat chest x-ray tomorrow possibility of discharge tomorrow -Hypertension patient blood pressures well-controlled resumed on her on his home medications -hyperlipidemia -Alcohol use: Counseling was provided
--- NOTE | 2020-02-17 16:25 | CONS ---
CONSULTATION PULMONARY/CRITICAL CARE CONSULTATION: DATE OF SERVICE: 02/17/2020 REASON FOR CONSULTATION: Shortness of breath and left pneumothorax. This is a 69-year-old male who typically sees Dorothea York, a nurse practitioner at the [facility] in [place], who apparently tripped over a piece of wood yesterday. He presented to the emergency room on February 15 complaining of pain in his left chest area. He had some mild difficulty in his breathing. He states he could not really take a deep breath. He apparently also abrased his left knee and left elbow. He does have a history of a bad knee on the left side. Anyway, he had some x-rays done which showed a left pneumothorax and rib fracture on rib 6. This is all on the left. A Thora-Vent was placed by one of the ER physicians in the emergency department. Currently, he is doing relatively well. He feels well. He states he does have some pain when he takes a deep breath. The Thora Vent is not connected to a Pleur- evac. HOME MEDICATIONS: Reviewed. He is on lisinopril, atorvastatin, Dyazide, and vitamins. ALLERGIES: ATENOLOL. MEDICAL HISTORY: Includes hyperlipidemia, hypertension, and sleep apnea system for which he uses CPAP. SURGICAL HISTORY: Includes hernia repair, tonsillectomy, right cataract surgery, and knee arthroscopy. SOCIAL HISTORY: Positive for previous tobacco use. Does not smoke currently. He states he is a daily alcohol user. Denies any illicit drug use. FAMILY HISTORY: Positive for a father and a sister with cancer. REVIEW OF SYSTEMS: CONSTITUTIONAL: Negative. NEUROLOGIC: Negative. HEENT: Negative. CARDIOVASCULAR: Left-sided chest pain. PULMONARY: Shortness of breath. GI: Negative. : Negative. RHEUMATOLOGIC: Negative. IMMUNOLOGIC: Negative. ENDOCRINOLOGIC: Negative. DERMATOLOGIC: Negative. Current vital signs, temperature is 98, heart rate 73, respiratory rate 18, blood pressure 117/76 mean 89, room air saturation 98%. Appears in no acute distress. HEENT: Examination is grossly unremarkable. Not getting any supplemental oxygen. NECK: Supple, full range of motion. No adenopathy. Neck veins are flat. CARDIOVASCULAR: Examination reveals regular rhythm and rate. S1, S2 normal. LUNGS: Reveal mostly clear breath sounds. A few scattered rhonchi on the on the left. No wheezes or crackles. He does not take deep breaths. There is a Thora-Vent on the left side. ABDOMEN: Soft. bowel sounds are heard. Masses are not noted. EXTREMITIES: Intact. No cyanosis, clubbing, or edema. SKIN: Without rash. NEUROLOGIC: Examination is nonfocal. LABS: Reviewed. White count 7.4, hemoglobin 10.2, hematocrit 32.5, platelet count normal. PT, INR, PTT all normal. Electrolytes all normal. BUN and creatinine were 34 and 0.93, 35 and 1.17 yesterday. The rest of the comprehensive metabolic profile is normal. The patient has had a chest x-ray today. It shows no site for pneumothorax. There is a Thora-Vent in place. Rib x-ray with chest x-ray from yesterday shows a 25% pneumothorax and a left minimally displaced 6th rib fracture. Current medications are reviewed. The patient is currently on Dilaudid, lisinopril, Narcan, Zofran, 0.9 IV, and Dyazide. IMPRESSION: 1. Status post fall with left-sided pneumothorax and left 6th rib fracture, status post Thora-Vent placement. 2. Hypertension with sleep apnea, currently maintained on CPAP. PLAN: The patient is doing well. Thoracic surgery was consulted. Will get a chest x- ray today and we have. It does show no evident sizable pneumothorax on the left. Will await input from thoracic surgery in regard to removing the Thora-Vent. No additional recommendations are made. Prognosis is guarded. Will continue to follow. MMODL / IJN: [id number] / MTDD
[2020-02-17] MEDS: KETOROLAC 30 MG/ML 1 ML VIAL IVP PRN (18:30)
[2020-02-17] MEDS: FAMOTIDINE 20 MG TAB PO SCH (20:30)
[2020-02-17] MEDS ORDERED: ATORVASTATIN 20 MG TAB PO SCH (21:00)
--- NOTE | 2020-02-18 07:18 | XR ---
EXAMINATION TYPE: XR chest 2V DATE OF EXAM: 02/18/2020 HISTORY: Follow-up pneumothorax COMPARISON: 02/17/2020 TECHNIQUE: Single view of the chest is submitted. FINDINGS: Left-sided pleural catheter is in place. There appears to be tiny left apical pneumothorax. No eviden ce for mediastinal shift. Basilar linear atelectasis. There is no evidence for focal infiltrate. The heart is stable. Hilar and mediastinal structures are within normal limits. Degenerative changes are seen of the dorsal spine. IMPRESSION: 1. Left-sided pleural catheter is in place. There appears to be tiny left apical pneumothorax. No ev idence for mediastinal shift. Basilar linear atelectasis.
[2020-02-18] MEDS: SODIUM CHLORIDE 0.9% 1,000 ML IV SCH (07:24)
[2020-02-18 08:30] VITALS: BP 139/82; PULSE 75; RESP 18; TEMP 97.8
[2020-02-18] MEDS: lisinopriL 20 MG TAB PO SCH (08:37)
[2020-02-18] MEDS: KETOROLAC 30 MG/ML 1 ML VIAL IVP PRN (08:37)
[2020-02-18] MEDS: TRIAMTERENE-HCTZ 37.5-25MG 1 EACH CAP PO SCH (08:37)
[2020-02-18] MEDS: FAMOTIDINE 20 MG TAB PO SCH (08:37)
--- NOTE | 2020-02-18 11:06 | P.PN ---
Subjective Progress Note Date: 02/18/20 Principal diagnosis: Left-sided traumatic pneumothorax, left sixth rib fracture, status post fall from standing, status post left-sided thoravent placement by the emergency room physicians. Previous medical history of hypertension, hyperlipidemia, previous tobacco dependence, and daily EtOH use Patient is currently sitting up in bed in no acute distress. Denies pain or shortness of breath. Occlusive cap placed to thoravent last night, chest x-ray this morning stable. Thoravent removed, follow-up chest x-ray stable. Has been ambulatory. No new concerns. Objective - Vital Signs Vital signs: Vital Signs Temp 97.8 F 02/18/20 07:00 Pulse 75 02/18/20 07:00 Resp 18 02/18/20 07:00 BP 139/82 02/18/20 07:00 Pulse Ox 98 02/18/20 07:00 Intake & Output 02/17/20 02/18/20 02/18/20 18:59 06:59 18:59 Other: # Voids 3 - Constitutional General appearance: Present: cooperative, no acute distress, obese - Respiratory Details: Lungs sounds essentially clear bilaterally. Respirations even, nonlabored. Currently on room air with oxygen saturation 98%. Left-sided thoravent disconti nued this morning - Cardiovascular Details: S1, S2 present. Regular rate and rhythm. Palpable peripheral pulses bilaterally. No edema present. No calf pain or tenderness noted. - Gastrointestinal Gastrointestinal Comment(s): Abdomen soft, nontender, nondistended. Active bowel sounds present 4 quadrants. Tolerating diet. - Genitourinary Genitourinary Comment(s): Continues to void - Integumentary Integumentary Comment(s): Skin is warm and dry with evidence of good perfusion. Dressing clean dry and intact over thoravent site. Abrasions noted to left elbow area - Neurologic Neurologic: Present: CNII-XII intact - Musculoskeletal Musculoskeletal: Present: gait normal, strength equal bilaterally - Psychiatric Psychiatric: Present: A&O x's 3, appropriate affect, intact judgment & insight - Allied health notes Allied health notes reviewed: nursing - Labs CBC & Chem 7: 02/17/20 07:19 02/17/20 07:19 - Imaging and Cardiology Chest x-ray: report reviewed, image reviewed Assessment and Plan Assessment: 1. Left-sided traumatic pneumothorax, left sixth rib fracture, status post fall from standing, status post left-sided thoravent placement by the emergency room physicians 2. History of hypertension 3. History of hyperlipidemia 4. Previous tobacco dependence 5. Daily EtOH use Plan: The thoravent was removed this morning and occlusive dressing placed over site. Follow-up chest x-ray was stable. From cardiothoracic surgery standpoint patient can be discharged to home. Discharge instructions were placed on the discharge plan. Our contact information was left with the patient. Encourage continued incentive spirometry use. Medical management of other comorbid per primary care service. Please call us with any further questions. Time with Patient: Greater than 30
--- NOTE | 2020-02-18 11:14 | XR ---
EXAMINATION TYPE: XR chest 2V DATE OF EXAM: 02/18/2020 COMPARISON: 02/18/2020 HISTORY: Removal of left pleural vent TECHNIQUE: Frontal and lateral views of the chest are obtained. FINDINGS: Scattered senescent parenchymal changes noted. Hyperinflation compatible with COPD. Left pleural cath eter has been removed. There is no evidence for residual pneumothorax. No evidence for infiltrate. No evidence for atelectasis. Heart size is stable. Mediastinal structures are stable and grossly unremarkable. No evidence for hilar prominence. Degenerative changes dorsal spine. IMPRESSION: 1. No evidence for acute pulmonary disease.
--- NOTE | 2020-02-18 12:50 | PN ---
PROGRESS NOTE PULMONARY/CRITICAL CARE PROGRESS NOTE: DATE OF SERVICE: February 18, 2020 This is a 69-year-old male that we saw yesterday in consultation for an injury to his left chest with the left 6th rib fracture and a left pneumothorax. A Thora-Vent was placed in the ER by the ER physician. He typically sees Dorothea adler at the [facility]. The Thora vent was removed by Thoracic Surgery today. A followup chest x-ray revealed no pneumothorax. The patient otherwise is feeling well other than pain in the left chest area and pain on taking a deep breath. PHYSICAL EXAMINATION: VITAL SIGNS: Current vital signs are reviewed. His temperature is 97.8. Heart rate 75, respiratory rate 18, blood pressure 139/82, mean 101 and 2 L saturation 98%. Appears in no acute distress. HEENT: Examination is grossly unremarkable. Mucous membranes are moist. No oral lesions. No supplemental oxygen. NECK: Supple full range of motion. No adenopathy or thyromegaly. Neck veins are flat. CARDIOVASCULAR: Examination reveals regular rhythm and rate. S1, S2 normal. No S3, S4, or murmur. LUNGS: Reveal clear breath sounds. No wheezes, rhonchi, or crackles. ABDOMEN: Soft bowel sounds are heard. EXTREMITIES are intact. No cyanosis, clubbing, or edema. SKIN: Without rash. NEUROLOGIC: Examination is brief but nonfocal. LABS: Reviewed. Nothing from today. Post Thora Vent removal chest x-ray shows no pneumothorax. ASSESSMENT: 1. Status post fall with injury to the left chest, left 6th rib fracture and a left- sided pneumothorax, status post Thoravent placement and subsequent removal. 2. History of hypertension. 3. History of sleep apnea, currently maintained on CPAP. PLAN: The Thora vent was removed by Thoracic Surgery. His post Thora vent removal showed no evidence of pneumothorax. The patient is doing well. We will follow up as needed. MMODL / IJN: [id number] /
--- NOTE | 2020-02-18 13:50 | P.DS ---
Providers Date of admission: 02/16/20 21:32 Attending physician: Mireille Perez Consults: 02/16/20 21:33 Consult Physician Routine Consulting Provider: Justin Mcgarry Consult Reason/Comments: Left pneumothorax Do you want consulting provider notified?: Yes 02/17/20 10:01 Consult Physician Routine Consulting Provider: Jaspal Abbott Consult Reason/Comments: left pneumothorax Do you want consulting provider notified?: Yes 02/17/20 11:28 Consult Physician Routine Consulting Provider: Hakeem Arias Consult Reason/Comments: trauma patient/ Fall Do you want consulting provider notified?: Yes Primary care physician: [facility] Course: Patient is admitted for the a mechanical fall and sixth rib fracture followed by pneumothorax patient had apparent for a day which is Last night and the patient didn't have any worsening pneumothorax patient had 25% pneumothorax. Patient had a chest x-ray today morning which appears stable patient is cleared for for discharge from cardio thoracic perspective. Repeat chest x-ray did not show any increasing pneumothorax patient will be discharged today patient is feeling better patient doesn't want any pain medications for his refracture. PHYSICAL EXAMINATION: GENERAL: The patient is alert and oriented x3, not in any acute distress. Well developed, well nourished. HEENT: Pupils are round and equally reacting to light. EOMI. No scleral icterus. No conjunctival pallor. Normocephalic, atraumatic. No pharyngeal erythema. No thyromegaly. CARDIOVASCULAR: S1 and S2 present. No murmurs, rubs, or gallops. PULMONARY: Chest is clear to auscultation, no wheezing or crackles. ABDOMEN: Soft, nontender, nondistended, normoactive bowel sounds. No palpable organomegaly. MUSCULOSKELETAL: No joint swelling or deformity. EXTREMITIES: No cyanosis, clubbing, or pedal edema. NEUROLOGICAL: Gross neurological examination did not reveal any focal deficits. SKIN: No rashes. Please put him HPI. Other it is a possible physician course and other medical problems that were addressed during this hospitalization Patient Condition at Discharge: Fair Plan - Discharge Summary Discharge Rx Participant: No New Discharge Prescriptions: Continue Lisinopril [Zestril] 20 mg PO DAILY Triamterene-Hctz 37.5-25Mg [Dyazide 37.5-25 Capsule] 1 cap PO DAILY Atorvastatin Calcium [Lipitor] 20 mg PO HS Vitamin For Swelling Otc(Unknown) 1 tab PO DAILY Discharge Medication List Lisinopril [Zestril] 20 mg PO DAILY 09/24/17 [History] Atorvastatin Calcium [Lipitor] 20 mg PO HS 02/16/20 [History] Triamterene-Hctz 37.5-25Mg [Dyazide 37.5-25 Capsule] 1 cap PO DAILY 02/16/20 [History] Vitamin For Swelling Otc(Unknown) 1 tab PO DAILY 02/16/20 [History] Follow up Appointment(s)/Referral(s): [facility],Clinic [Primary Care Provider] - 3 Days (office closed at time of discharge please call to make appointment) Patient Instructions/Handouts: Traumatic Pneumothorax (DC) Activity/Diet/Wound Care/Special Instructions: DISCHARGE INSTRUCTIONS: 1. No driving for 2 weeks, or until physician gives their ok. 2. No lifting, pushing, or pulling more than 10 pounds for 2 weeks. The physician will advise of any restriction changes. 3. Continue pain control per as needed orders. Alternate acetaminophen (Tylenol) and ibuprofen (Motrin/Advil) for pain. 4. Continue with incentive spirometry and splinting until otherwise directed by the physician. 5. Leave chest tube dressing for 48 hours. After that, remove all dressings and shower daily. 6. Routine incision care. No powders, lotions, ointments on incisions. 7. Please call surgeon/REGISTER CLERK for temp greater than 101 F or purulent drainage from incisions. For any questions or concerns regarding Thoravent site please call Petra BOB at [phone] Discharge Disposition: HOME SELF-CARE
== END 2020-02-18 14:08 | disposition home or self-care (01) | DRG 200 ==
LOC: EC 18:57 → 4SSUR 21:32
PROVIDERS: ADMIT Internal Medicine; ATTEND Internal Medicine
PROC: 0W9B30Z Drainage of Left Pleural Cavity with Drainage Device, Percutaneous Approach (ICD-10-PCS; principal; 2020-02-16)
DX: S27.0XXA Traumatic pneumothorax, initial encounter (principal); S22.42XA Multiple fractures of ribs, left side, initial encounter for closed fracture; E78.5 Hyperlipidemia, unspecified; I10 Essential (primary) hypertension; G47.33 Obstructive sleep apnea (adult) (pediatric); M19.90 Unspecified osteoarthritis, unspecified site; M25.562 Pain in left knee; Z20.828 Contact with and (suspected) exposure to other viral communicable diseases; M25.512 Pain in left shoulder; G89.29 Other chronic pain; E66.9 Obesity, unspecified; Z68.30 Body mass index [BMI] 30.0-30.9, adult; Z72.89 Other problems related to lifestyle; Z71.41 Alcohol abuse counseling and surveillance of alcoholic; Z79.899 Other long term (current) drug therapy; Z87.891 Personal history of nicotine dependence; Z98.41 Cataract extraction status, right eye; Z88.8 Allergy status to other drugs, medicaments and biological substances; Z82.49 Family history of ischemic heart disease and other diseases of the circulatory system; Z80.9 Family history of malignant neoplasm, unspecified; W01.0XXA Fall on same level from slipping, tripping and stumbling without subsequent striking against object, initial encounter; Y92.009 Unspecified place in unspecified non-institutional (private) residence as the place of occurrence of the external cause
CPT/HCPCS: 32551; 36415; 71045; 71046; 80053; 82550; 85025; 85610; 85730; 96374; 99285

== ENCOUNTER → 2020-03-26 | Outpatient (CLI) | payer OTHER | END | disposition home or self-care (01) | LOC: LABPAT 09:22 | PROVIDERS: ATTEND Orthopaedic Surgery | DX: Z01.812 Encounter for preprocedural laboratory examination (principal) | CPT/HCPCS: 87070 ==

== ENCOUNTER 2020-04-24 09:02 | Inpatient (IN) | payer OTHER ==
[2020-04-18 15:28] VITALS: BMI 30.9
--- NOTE | 2020-04-23 10:29 | HP ---
HISTORY AND PHYSICAL CHIEF COMPLAINT: Left shoulder pain. HISTORY OF PRESENT ILLNESS: The patient is a 70-year-old, right-hand dominant, self-employed male who presents with left shoulder pain for the past several years. It has worsened recently. He is having pain with any overhead use and at night. He notes he is significantly limited because of this. He has tried medications without much relief. PAST MEDICAL HISTORY: Significant for coronary artery disease, hypertension, arthritis, COPD. PAST SURGICAL HISTORY: Significant for previous right shoulder surgery, right knee surgery, and hernia repair. CURRENT MEDICATIONS: Lisinopril. He denies drug allergies. FAMILY HISTORY: Noncontributory. SOCIAL HISTORY: Significant for previous tobacco use in addition to daily alcohol use. 16 POINT REVIEW OF SYSTEMS: Otherwise reviewed and is noncontributory. PHYSICAL EXAMINATION: On examination, the patient is approximately 6 foot 1, 230 pounds of endomorphic habitus. HEENT: Exam is nonfocal. NECK: Supple. On examination of his left shoulder, he is tender about the anterior glenohumeral joint. He has moderate crepitus. Active range of motion forward elevation 95 degrees, external rotation with arm at side 10 degrees, internal rotation to L3. Motor strength 4-/5 for abduction and external rotation. Impingement test, NEER tests are positive. His distal neurovascular appears intact in the left upper extremity. X-rays to include AP, lateral, and axillary x-ray, AP, outlet and axillary lateral views of the left shoulder show severe glenohumeral joint osteoarthrosis with maintained humeral head to acromial distance. IMPRESSION: 1. Left severe glenohumeral joint osteoarthrosis. 2. Hypertension. 3. History of coronary artery disease. RECOMMENDATIONS: I talked to the patient at length regarding his condition along with treatment options. At this point, he is quite limited because of pain related to his osteoarthrosis, despite conservative measures. After thorough discussion, he opts to proceed with surgery. We will plan to proceed with left total shoulder arthroplasty. We will likely keep the patient for a 24-hour hold postoperatively. Risks and benefits were discussed at length in layman's terms. MMODL / IJN: [id number] /
[~2020-04-24 09:02] MED LIST changes: +ACETAMINOPHEN TAB 500 MG TAB PO ONE; +MELOXICAM 7.5 MG TAB PO ONE; +Pre Op ABX Message 1 EACH MISC MISCELLANE ONE; +TRANEXAMIC ACID 1,000 MG in SODIUM CHLORIDE 0.9% 100 ML IVPB ONE; -ceFAZolin IN SWFI 2 GM/20 ML SYRINGE IVP ONE
[2020-04-24 09:47] LABS: INR 1.1 (<1.2)
[2020-04-24] MEDS ORDERED: ceFAZolin 1,000 MG in SODIUM CHLORIDE 0.9% 1,000 ML IRRIGATION ONE (10:59)
[2020-04-24] MEDS ORDERED: HYDROmorphone 0.5 MG/0.5 ML SYRINGE IVP PRN (12:22)
[2020-04-24] MEDS ORDERED: HYDROcodone/APAP 5-325MG 1 EACH TAB PO PRN ×2 (12:22)
[2020-04-24] MEDS ORDERED: ONDANSETRON 4 MG/2 ML VIAL IVP PRN (12:22)
--- NOTE | 2020-04-24 12:45 | P.OP ---
Date of Procedure: 04/24/20 Preoperative Diagnosis: Severe left glenohumeral joint osteoarthrosis Postoperative Diagnosis: Same Procedure(s) Performed: Left total shoulder arthroplasty Implants: [employer] size 14 humeral stem/body, 52 mm +21 eccentric humeral head, 48 mm cemented central pegged glenoid component. Anesthesia: LARISSAA Surgeon: Eric Telles Maintenance Tech #1: Pepe Chen Estimated Blood Loss (ml): 100 Pathology: other (Humeral head) Condition: stable Disposition: PACU Indications for Procedure: The patient's 70-year-old male presents with progressive left shoulder pain secondary to osteoarthrosis despite conservative measures. After thorough discussion of the risks and benefits of operative intervention versus continued conservative measures he opted to proceed with surgery. Operative risks to include infection, neurovascular injury, development of blood clots, fracture, possible component loosening, possible component failure and need for subsequent procedures was discussed. Informed consent was obtained. Operative Findings: As below Description of Procedure: The patient was brought to the operating room, and after induction of general anesthesia was placed in the beachchair position. The bony prominences were appropriately padded. The left upper extremity was prepped and draped in normal fashion. A deltopectoral incision was then made lateral to the coracoid process extending approximately 12 cm. The skin was incised sharply. Subcutaneous tissues were divided bluntly. Electrocautery was used for hemostasis. The deltopectoral interval was identified and the cephalic vein gently retracted laterally with the deltoid. Subdeltoid adhesions were bluntly dissected. A self-retaining retractor was placed. The clavipectoral fascia was opened and th e conjoined tendon gently retracted medially. The upper one third of the pectoralis major was released to help facilitate exposure. The biceps was identified and the sheath was opened. The rotator interval was opened. The biceps was tenotomized and allowed to retract distally. The lesser tuberosity osteotomy was performed with a small sagittal saw. This completed with an osteotome. The humeral head was then exposed releasing the capsule off the humeral neck. The shoulder was gently dislocated. A starting hole was made in the head in line with the humeral shaft. The shaft was reamed by hand up to 14 mm. There is good distal chatter. The cutting guide was placed planning on a cut flush with the rotator cuff insertion and 30 of retroversion. The cutting block was pinned in place. The humeral head cut was then made. This measured most appropriately at 52 mm by 21 mm Residual inferior osteophytes were carefully removed flush with the lower brule cortical bone. A posterior glenoid retractor was placed. The glenoid was then exposed releasing the labrum from the 6-12 o'clock position. Residual labral tissue was removed. The glenoid sized most appropriate 48 mm. A guidewire was then inserted planning on the appropriate version. The glenoid was reamed down to a bleeding bony surface. The central pedicle was drilled. The alignment guide was placed in the peripheral peg holes drilled. The trial size 48 mm glenoid was placed and was fully seated. There was good anterior to posterior and inferior to superior fit. The trial component was removed. Pulsatile lavage was utilized. The bony surface was dried. The peripheral peg holes were then pressurized with cement utilizing a syringe. Excess cement was removed. A central peg glenoid was then placed and was fully seated. This was gently impacted. This was held in place until the cement had sufficiently hardened. Attention was then paid again towards preparing the proximal humerus. The appropriate broach was placed in 30 of retroversion and was fully seated. An eccentric 52 x 21 mm humeral head was placed. The shoulder was gently reduced. It was taken through a range of motion. It was felt to be stable in flexion and extension with internal and external rotation. I felt there was adequate gnosticist of soft tissue tension. The shoulder was gently dislocated. The trial components were then removed. A #2 Ethibond was placed laterally for reattachment of the lesser tuberosity. The humeral stem was inserted in 30 of retroversion and was fully seated. There was good rotational stability. The eccentric 52 x 21 mm humeral head was gently impacted. The shoulder was then gently reduced and taken through range of motion and was felt to be stable. Pulsatile lavage was utilized. Lesser tuberosity was reattached utilizing #2 Ethibond suture. The rotator interval was closed with #2 Ethibond suture. She had minimal drainage at this point therefore a deep drain was not placed. The deltopectoral interval was closed with interrupted 2-0 Vicryl sutures. The subcu tissues were reapproximated with interrupted 2-0 Vicryl sutures. The skin was reprepped with 3-0 subcuticular Prolene suture. Steri-Strips were applied. A sterile dressing was applied in addition to a sling. The patient was then awoken from general anesthesia and transferred to recovery room in good condition. Blood loss was estimated at 100 mL. No complications were incurred. Sponge and needle counts were correct at the end the case. Flo RACHEL assisted during the major components the case to include exposure, resection, implantation, and closure.
--- NOTE | 2020-04-24 15:29 | XR ---
EXAMINATION TYPE: XR shoulder limited LT DATE OF EXAM: 04/24/2020 CLINICAL HISTORY: Status post total shoulder arthroplasty TECHNIQUE: Portable single view of the left shoulder obtained. COMPARISON: Left shoulder radiograph 04/27/2013 FINDINGS: Left shoulder total arthroplasty with good anatomic alignment. Subcutaneous emphysema and cutaneous irregularity postoperative changes. Surgical clip of the left shoulder. No evidence of disp laced fracture. No unexpected radiopaque foreign body. IMPRESSION: Status post left total shoulder arthroplasty with good anatomic alignment.
--- NOTE | 2020-04-24 17:37 | P.ANPRN ---
Procedure Note - Anesthesia - Nerve Block Performed Left Interscalene Single Time Out Performed: Yes Date of Procedure: 04/24/20 Procedure Start Time: 13:15 Procedure Stop Time: :24 Location of Patient: PreOp Indication: Acute Post-Operative Pain, Dx/Pain Location, Requested by Surgeon Specifically requested for management of pain by : Eric Telles Sedation Type: Sedate with meaningful contact maintained Preparation: Sterile Prep Position: Supine Catheter: None Needle Types: Facet Needle Gauge: 21 Ultrasound used to visualize needle placement: Yes Ultrasound used to observe medication spread: Yes Injectate: 0.5% Ropivacaine (see comment for volume) Blood Aspirated: No Pain Paresthesia on Injection Noted: No Resistance on Injection: Normal Image Stored and Saved: Yes Events: Uneventful and Well Tolerated (15cc Ropivacaine)
[2020-04-24] MEDS ORDERED: LORazepam 0.5 MG TAB PO PRN (19:29)
--- NOTE | 2020-04-24 20:28 | CONS ---
CONSULTATION DATE OF SERVICE: 04/24/2020 REASON FOR CONSULTATION: Advice regarding hypertension, hyperlipidemia and other medical issues requested by Dr. Telles. HISTORY OF PRESENT ILLNESS: This 70-year-old gentleman with a past medical history of hypertension, hyperlipidemia, history of DJD, sleep apnea, being followed by [facility] and Dr. Huang in the outpatient setting, underwent left total shoulder arthroplasty by Dr. Telles for severe DJD. There is no history of any fever, rigor or chills. No history of headache, loss of consciousness, seizures at this time. No history of chest pain or palpitations, either. PAST MEDICAL HISTORY: Hypertension, hyperlipidemia, history of DJD, history of fractured ribs, history of hernia repair, nicotine dependence. MEDICATIONS: Medications prior to admission include Zestril 20 mg p.o. daily, Dyazide 1 p.o. daily, Lipitor 20 mg at bedtime. ALLERGIES: ATENOLOL. FAMILY HISTORY: History of cancer in the family. SOCIAL HISTORY: Previous history of smoking. Occasional alcohol intake. REVIEW OF SYSTEMS: ENT: No diminished hearing. No diminished vision. CARDIOVASCULAR SYSTEM: No angina, palpitations. RESPIRATORY SYSTEM: No cough, hemoptysis. GI: No nausea, vomiting. : No dysuria or retention. NERVOUS SYSTEM: No numbness, weakness. ALLERGY/IMMUNOLOGY: No asthma, hayfever. MUSCULOSKELETAL: As mentioned earlier. HEMATOLOGY/ONCOLOGY: No history of anemia. ENDOCRINE: No history of diabetes, hypothyroidism. CONSTITUTIONAL: As mentioned earlier. DERMATOLOGY: Negative. RHEUMATOLOGY: Negative. PSYCHIATRY: As mentioned earlier. PHYSICAL EXAMINATION: Patient is alert and oriented x3. Pulse 76, blood pressure 102/58, respirations 16, temperature 97.2, pulse ox 95% on 3 L. HEENT: Conjunctivae normal. NECK: No jugular venous distention. CARDIOVASCULAR SYSTEM: S1, S2 muffled. RESPIRATORY SYSTEM: Breath sounds diminished at the bases. No rhonchi. No crackles. ABDOMEN: Soft, non-tender. No mass palpable. LEGS: No edema. No swelling. NERVOUS SYSTEM: Higher functions as mentioned earlier. Moves all 4 limbs. No focal motor or sensory deficit. LYMPHATICS: No lymph node palpable in neck, axillae or groin. SKIN: No ulcer, rash, bleeding. JOINTS: Status post left shoulder surgery. LABS: Preoperative labs: PT/INR normal. Hemoglobin 10.2. Chemistries unremarkable. ASSESSMENT: 1. Status post left shoulder arthroplasty. 2. History of recent mechanical fall and rib fracture on the left side followed by pneumothorax. 3. Hypertension. 4. Hyperlipidemia. 5. History of degenerative joint disease. 6. History of sleep apnea. 7. History of CPAP usage. 8. History of hernia repair. 9. Remote history of nicotine dependence. 10.History of ETOH. 11.FULL CODE. RECOMMENDATION AND DISCUSSION: In this 70-year-old gentleman who presented with multiple complex medical issues, at this time I recommend to continue current medications, continue symptomatic treatment. Incentive spirometry and p.r.n. Ativan. DVT prophylaxis. Closely follow with Orthopedic Surgery. Otherwise, resume the home medications. We will follow the patient closely with you and the patient may be asked to follow up with Dr. Huang closely after discharge. Thank you, Dr. Telles, for letting us participate in the care of this patient. MMODL / IJN: [id number] /
[2020-04-24] MEDS ORDERED: ATORVASTATIN 20 MG TAB PO SCH (21:00)
[2020-04-25 05:55] LABS: Basophils % (A) 0 %; Eosinophils # (A) 0.1 k/uL (0-0.7); Eosinophils % (A) 1 %; HGB 12.2 gm/dL (13.0-17.5); Lymphocytes # (A) 1.3 k/uL (1.0-4.8); Lymphocytes % (A) 9 %; MCH 29.6 pg (25.0-35.0); MCHC 32.1 g/dL (31.0-37.0); MCV 92.1 fL (80.0-100.0); Mean Platelet Volume 6.4; Monocytes # (A) 0.9 k/uL (0-1.0); Monocytes % (A) 7 %; Neutrophils # (A) 11.4 k/uL (1.3-7.7); Neutrophils % (A) 82 %; Platelet Count 283 k/uL (150-450); RBC 4.13 m/uL (4.30-5.90); RDW 15.3 % (11.5-15.5); WBC 13.9 k/uL (3.8-10.6)
[2020-04-25 07:17] VITALS: BP 135/71; PULSE 86; RESP 14; TEMP 97.9
[2020-04-25] MEDS ORDERED: TRIAMTERENE-HCTZ 37.5-25MG 1 EACH CAP PO SCH (09:00)
[2020-04-25] MEDS ORDERED: ASPIRIN 325 MG TAB PO SCH (09:00)
[2020-04-25] MEDS ORDERED: lisinopriL 20 MG TAB PO SCH (09:00)
--- NOTE | 2020-04-25 10:25 | P.PN ---
Subjective Progress Note Date: 04/25/20 Principal diagnosis: Status post left total shoulder arthroplasty Patient seen today resting in his hospital bed, he appears comfortable. No acute pain noted. Denies chest pain or shortness of breath. Objective - Vital Signs Vital signs: Vital Signs Temp 97.9 F 04/25/20 07:14 Pulse 86 04/25/20 07:14 Resp 14 04/25/20 07:14 BP 135/71 04/25/20 07:14 Pulse Ox 95 04/25/20 07:14 Intake & Output 04/24/20 04/25/20 04/25/20 18:59 06:59 18:59 Intake Total 951 800 Output Total 100 Balance 851 800 Weight 106.2 kg Intake: IV 951 Intake, IV Titration 800 Amount Lactated Ringers 1,000 ml 800 @ 50 mls/hr IV .Q20H MARIAMA Rx#:[id number] Output: Estimated Blood Loss 100 Other: Voiding Method Toilet # Voids 1 - Exam Left upper extremity: Postoperative bandages in good position and condition. Minimal soft tissue swelling and bruising noted in the arm. Sensory exam to light touch is intact at the extremity. Radial pulses 2+. - Labs CBC & Chem 7: 04/25/20 05:33 Labs: Abnormal Lab Results - Last 24 Hours (Table) 04/25/20 Range/Units 05:33 WBC 13.9 H (3.8-10.6) k/uL RBC 4.13 L (4.30-5.90) m/uL Hgb 12.2 L (13.0-17.5) gm/dL Hct 38.0 L (39.0-53.0) % Neutrophils # 11.4 H (1.3-7.7) k/uL Assessment and Plan Assessment: Status post left total shoulder arthroplasty Plan: pain control, plan for discharge home on oral medication GI and DVT prophylaxis, aspirin 325 mg daily 2 weeks Wound care instructions discussed Activity level restrictions discussed, use the arm sling discussed Medical recommendations Plan for discharge home today Time with Patient: Less than 30
--- NOTE | 2020-04-25 10:28 | P.DS ---
Providers Date of admission: 04/24/20 09:02 Expected date of discharge: 04/25/20 Attending physician: Eric Telles Consults: 04/24/20 12:22 Consult Physician Routine Consulting Provider: Black Baca Consult Reason/Comments: medical management Do you want consulting provider notified?: Yes Primary care physician: [facility] Hospital Course: Date of admission: 04/24/2020 Date of discharge: 04/25/2020 Admission diagnosis: Status post left total shoulder arthroplasty Discharge diagnosis: Same Attending physician: Dr. Telles Surgical procedures: Status post left total shoulder arthroplasty Brief history: Patient is a 70-year-old male with a history of progressive primary left shoulder osteoarthritis. At this point patient has failed conservative treatment measures and has opted to proceed with a elective left total shoulder arthroplasty. Hospital course: Details of patient's surgery can be found in operative report. Patient tolerated the procedure well and was subsequently transported to orthopedic floor. Patient's orthopeidc and medical care was provided daily. Patient had daily laboratory tests performed for evaluation of overall blood counts. Patient was treated with aspirin for their postoperative DVT prophylaxis during their inpatient stay. Patient was noted to have a relatively uneventful postoperative course. Patient reported satisfactory pain control with oral pain medications by postoperative day 0. Patient showed satisfactory progress with physical therapy. Patient moved steadily through the program and had no difficulty meeting the goals by postoperative day 1. Given patient's otherwise satisfactory course and having met physical therapy goals, plan is to discharge patient home on postoperative day 1. Discharge condition/disposition: Patient will be discharged home in stable condition. Discharge medications: Instructions are given on resumption of patient's normal daily medications per primary care recommendation, in addition patient will be prescribed [place] 5 mg/325 mg, Colace 100 mg, aspirin 325 mg. Discharge instructions: 1. Wound care and infection precautions, keep incision dry and covered while showering, no lotions, creams, moisturizers. No soaking, tubs, pools, hottubs. Do not scrub over the incision. 2. Utilize arm sling 3. Ice the shoulder often 4. Utilize compression sleeve until seen at first follow up appointment. 7. Pain meds and anticoagulants per prescription. 8. Pain medication has potential to cause constipation. Increase oral fluid and fiber intake. Contact primary care provider if you have not had a bowel movement within 48 hours after discharge 9. No anti-inflammatory medication until discussed at first post operative visit, this including Motrin, Aleve, Mobic, Diclofenac 10. Follow up in office at 2 weeks postop with Flo Chen PA-C 11. Follow up with your primary care doctor 7-10 days after discharge. 12. Contact [facility] with any questions, . Procedures: left total shoulder arthroplasty Patient Condition at Discharge: Good Plan - Discharge Summary Discharge Rx Participant: No New Discharge Prescriptions: New Aspirin 325 mg PO DAILY #30 tab Docusate [Colace] 100 mg PO DAILY #15 capsule Hydrocodone/Acetaminophen [[place] 5-325] 1 - 2 each PO Q6HR PRN #30 tab PRN Reason: Pain No Action lisinopriL [Zestril] 20 mg PO DAILY Triamterene-Hctz 37.5-25Mg [Dyazide 37.5-25 Capsule] 1 cap PO DAILY Atorvastatin Calcium [Lipitor] 20 mg PO HS Discharge Medication List lisinopriL [Zestril] 20 mg PO DAILY 09/24/17 [History] Atorvastatin Calcium [Lipitor] 20 mg PO HS 02/16/20 [History] Triamterene-Hctz 37.5-25Mg [Dyazide 37.5-25 Capsule] 1 cap PO DAILY 02/16/20 [History] Aspirin 325 mg PO DAILY #30 tab 04/25/20 [Rx] Docusate [Colace] 100 mg PO DAILY #15 capsule 04/25/20 [Rx] Hydrocodone/Acetaminophen [[place] 5-325] 1 - 2 each PO Q6HR PRN #30 tab 04/25/20 [Rx] Follow up Appointment(s)/Referral(s): Pepe Chen PAC [PHYSICIAN [employer]PIE[employer]ER] - 05/09/20 2:20 pm [facility],Clinic [Primary Care Provider] - 1 Week (Office will call you with your appointment date and time. Thank you.) Activity/Diet/Wound Care/Special Instructions: Orthopedic Discharge Instructions: 1. Wound care and infection precautions, keep incision dry and covered while showering, no lotions, creams, moisturizers. No soaking, pools, hot tubs. Do not scrub over incision. 2. Utilize arm sling 3. Ice and elevate when necessary. Do not exceed 20 minutes per hour with ice pack. 4. Utilize compression sleeve until seen at first follow up appointment. 5. Pain meds and anticoagulants per prescription. 6. Pain medication has potential to cause constipation. Increase oral fluid and fiber intake. Contact primary care provider if you have not had a bowel movement within 48 hours after discharge. 8. Follow up in office at 2 weeks postop with Flo Chen PA-C 9. Follow up with your primary care doctor 7-10 days after discharge. 10. Contact [facility] with any questions, . Discharge Disposition: HOME WITH HOME HEALTH SERVICES
--- NOTE | 2020-04-25 16:56 | PN ---
PROGRESS NOTE DATE OF SERVICE: 04/25/2020 This 70-year-old gentleman who was admitted after left shoulder arthroplasty is improving significantly. No chest pain. No palpitations. No fever. PHYSICAL EXAMINATION: Alert and oriented x3. Pulse 86, blood pressure 134/70, respiration 14, temperature 97.9, pulse ox 94% on room air. HEENT: Conjunctivae normal. NECK: No jugular venous distention. CARDIOVASCULAR SYSTEM: S1, S2 muffled. RESPIRATORY SYSTEM: Breath sounds diminished at the bases. No rhonchi. No crackles. ABDOMEN: Soft. LEFT SHOULDER: Status post arthroplasty. LABS: WBC 13.3, hemoglobin 12.2. ASSESSMENT: 1. Status post left shoulder arthroplasty. 2. History of recent mechanical fall with rib fractures on the left side followed by pneumothorax. 3. Increased white count, possibly reactive. 4. Hypertension. 5. Hyperlipidemia. 6. History of degenerative joint disease. 7. Sleep apnea. 8. History of CPAP usage. 9. History of hernia repair. 10.Remote history of nicotine dependence. 11.History of ETOH. 12.FULL CODE. RECOMMENDATIONS AND DISCUSSION: I recommend to continue current medications, continue with the monitoring, symptomatic treatment. Continue with the home medications and follow closely with primary physician. Repeat labs are arranged with [facility] and Dr. Huang. I would recommend CBC, CMP in 2 weeks to monitor white count as well as LFTs. This is being planned in the outpatient setting. MMENZOL / TAMIA: [id number] /
== END 2020-04-25 12:48 | disposition home health service (06) | DRG 483 ==
LOC: 2ORMAIN 09:02 → 4SSUR 13:28
PROVIDERS: ADMIT Orthopaedic Surgery; ATTEND Orthopaedic Surgery
PROC: 0RRK0JZ Replacement of Left Shoulder Joint with Synthetic Substitute, Open Approach (ICD-10-PCS; principal; 2020-04-24 10:45)
DX: M19.012 Primary osteoarthritis, left shoulder (principal); E78.5 Hyperlipidemia, unspecified; G47.33 Obstructive sleep apnea (adult) (pediatric); Z99.89 Dependence on other enabling machines and devices; E66.9 Obesity, unspecified; Z68.30 Body mass index [BMI] 30.0-30.9, adult; F10.10 Alcohol abuse, uncomplicated; I10 Essential (primary) hypertension; I25.10 Atherosclerotic heart disease of native coronary artery without angina pectoris; J44.9 Chronic obstructive pulmonary disease, unspecified; Z80.9 Family history of malignant neoplasm, unspecified; Z87.891 Personal history of nicotine dependence; Z90.89 Acquired absence of other organs; S22.49XD Multiple fractures of ribs, unspecified side, subsequent encounter for fracture with routine healing; W19.XXXD Unspecified fall, subsequent encounter; Z79.899 Other long term (current) drug therapy
CPT/HCPCS: 85025; 85610; 88300